=== PATIENT | male | born 1990 | race Caucasian/White ===

== ENCOUNTER 2022-01-22 03:51 | Emergency (ER) | payer OTHER ==
[2022-01-22 04:14] VITALS: BP 111/74; PULSE 66; TEMP 98.1; BMI 23.0
[2022-01-22] MEDS ORDERED: predniSONE 20 MG TABLET (UD) PO ONE (04:22)
[2022-01-22] MEDS ORDERED: predniSONE 20 MG TABLET (UD) ONE (04:26)
[2022-01-22] MEDS ORDERED: predniSONE 10 MG TABLET (UD) ONE (04:26)
[2022-01-22] MEDS: ALBUTEROL SO4 2.5/IPRATROPIUM 0.5 INH SOL 3 ML VIAL.NEB. NEB SCH ×2 (04:34→05:23)
== END 2022-01-22 05:28 | disposition home or self-care (01) ==
LOC: JER 03:51
PROC: 3E0F7GC Introduction of Other Therapeutic Substance into Respiratory Tract, Via Natural or Artificial Opening (ICD-10-PCS; principal; 2022-01-22)
DX: J45.909 Unspecified asthma, uncomplicated (principal)
CPT/HCPCS: 99284-25

== ENCOUNTER 2022-10-21 17:05 | Emergency (ER) | payer OTHER ==
[2022-10-21 17:22] VITALS: BP 118/76; PULSE 90; RESP 18; TEMP 98.5; BMI 23.0
[2022-10-21] MEDS ORDERED: predniSONE 20 MG TABLET (UD) PO ONE (18:04)
[2022-10-21] MEDS ORDERED: ALBUTEROL SO4 HFA INHALER IH ONE ×2 (18:04→18:17)
[2022-10-21] MEDS ORDERED: predniSONE 20 MG TABLET (UD) ONE (18:17)
== END 2022-10-21 19:05 | disposition home or self-care (01) ==
LOC: JER 17:05 → JERFT 17:05
PROC: 3E0F7GC Introduction of Other Therapeutic Substance into Respiratory Tract, Via Natural or Artificial Opening (ICD-10-PCS; principal; 2022-10-21)
DX: J45.40 Moderate persistent asthma, uncomplicated (principal)
CPT/HCPCS: 99283-25